=== PATIENT | female | born 1960 | race African-American/Black ===

== ENCOUNTER 2023-05-30 06:05 | Day surgery (SDC) | payer OTHER ==
[2023-05-25 12:24] VITALS: BMI 35.6
[2023-05-30] MEDS ORDERED: PROPOFOL 40 ML ONE (06:58)
[2023-05-30] MEDS ORDERED: MIDAZOLAM HCL 2 MG/2 ML SINGLE DOSE VIAL ONE (06:58)
[2023-05-30] MEDS ORDERED: BUPIVACAINE LIPOSOME/PF (EXPAREL) 266 MG/20 ML VIAL ONE (07:01)
[2023-05-30] MEDS ORDERED: BUPIVACAINE HCL/PF 0.5% (5MG/ML) 10 ML VIAL ONE (07:01)
[2023-05-30] MEDS ORDERED: ACETAMINOPHEN INJECTION 100 ML IVPB ONE (07:01)
[2023-05-30] MEDS ORDERED: ONDANSETRON 4 MG/2 ML VIAL IVPUSH PRN ×2 (07:08→13:10)
[2023-05-30] MEDS ORDERED: TRANEXAMIC ACID 1000 MG/10 ML VIAL ONE ×3 (08:56→09:05)
[2023-05-30] MEDS ORDERED: ceFAZolin SODIUM 1 GM VIAL ONE ×2 (08:56)
[2023-05-30] MEDS ORDERED: ONDANSETRON 4 MG/2 ML VIAL ONE (08:56)
[2023-05-30] MEDS ORDERED: KETOROLAC TROMETHAMINE 30 MG/1 ML VIAL ONE (08:56)
[2023-05-30] MEDS ORDERED: PROPOFOL 20 ML ONE (08:56)
[2023-05-30] MEDS ORDERED: MAGNESIUM HYDROX 2400MG/30ML ORAL SUSPENSION 30 ML CUP PO PRN (10:11)
[2023-05-30] MEDS ORDERED: MAG HYDROX/AL HYDROX/SIMETH 30 ML UNIT-DOSE CUP PO PRN (10:11)
[2023-05-30] MEDS: oxyCODONE HCL 5 MG TABLET PO PRN ×2 (13:17→21:21)
[2023-05-30] MEDS: LACTATED RINGERS SOLUTION 1,000 ML IV SCH (13:20)
[2023-05-30] MEDS: ACETAMINOPHEN 1000 MG/100 ML BAG IVPB SCH (16:40)
[2023-05-30] MEDS: CEFAZOLIN SODIUM 2 GM in DEXTROSE 5%-WATER 100 ML IVPB SCH (18:45)
[2023-05-30] MEDS: DEXAMETHASONE 4 MG TABLET (FP) PO SCH (21:21)
[2023-05-30] MEDS: SENNOSIDES/DOCUSATE COMBO (SENNA PLUS) TABLET (UD) PO SCH (21:21)
[2023-05-30] MEDS: FAMOTIDINE 20 MG TABLET PO SCH (21:22)
[2023-05-30] MEDS: ASPIRIN 81 MG CHEWABLE TABLETS PO SCH (21:22)
[2023-05-30] MEDS: TRANEXAMIC ACID - 1,000 MG in SODIUM CHLORIDE 50 ML IVPB SCH (21:23)
[2023-05-30] MEDS ORDERED: TRANEXAMIC ACID 1000 MG/10 ML VIAL IVPB SCH (22:00)
[2023-05-31 00:03] VITALS: RESP 18
[2023-05-31] MEDS: CEFAZOLIN 2 GM in DEXTROSE 5%-WATER - 50 ML IVPB ONE (03:26)
[2023-05-31] MEDS: TRANEXAMIC ACID 1000 MG/10 ML VIAL IVPUSH ONE (03:26)
[2023-05-31] MEDS: MULTIVITAMINS (DAILY MVI) TABLET (FP) PO SCH (09:07)
[2023-05-31 09:51] VITALS: PULSE 78
[2023-05-31 14:12] VITALS: BP 136/79; TEMP 98.2
== END 2023-05-31 16:35 | disposition home or self-care (01) ==
LOC: FASUSAT 06:05 → FM/S 12:25 → FASUSAT 05-31 16:35
PROVIDERS: ATTEND Orthopaedic Surgery
PROC: 0SRD0J9 Replacement of Left Knee Joint with Synthetic Substitute, Cemented, Open Approach (ICD-10-PCS; principal; 2023-05-30 08:13)
DX: M17.12 Unilateral primary osteoarthritis, left knee (principal)
CPT/HCPCS: 27447; C1776; 73560-TC-LT-FY; 94760; 97010-GP; 97116-GP; 97162-GP; C1889; J0131